=== PATIENT | male | born 1955 | race American Indian/Alaskan Native ===

== ENCOUNTER 2016-06-18 09:52 | Inpatient (IN) | payer SELFPAY ==
[2016-06-18] MEDS ORDERED: NACL 0.9% 1000 ML 1,000 ML IV ONE (10:10)
--- NOTE | 2016-06-18 10:35 | Emergency Department Report ---
Chief Complaint: GI Bleed Stated Complaint: CHEST PAIN/BLOOD IN STOOL Time Seen by Provider: 06/18/16 10:30 - HPI History of Present Illness: 60 Y/O complain of chest palpitation.pt current has a pacemaker in place .pt complain of rectal bleeding .pt state that he current taking xarelto .pt compliain of chest pain and shortness of breath with walking .no prior medication .no prior treatment . - ROS Review of Systems: per HPI - Exam Vital Signs: Vital Signs 06/18/16 10:06 Temperature 98.5 F Pulse Rate 68 Respiratory 22 Rate Blood Pressure 216/108 O2 Sat by Pulse 100 Oximetry Physical Exam: GENERAL: The patient is well-developed and well-nourished. Patient is in NAD. HENT: Normocephalic. Atraumatic. Patient has moist mucous membranes. Throat: No erythema, swelling or exudates. EYES: Extraocular motions are intact, PERRL NECK: Supple. No meningitic signs are noted. There is no adenopathy noted. CHEST/LUNGS: Clear to auscultation bilaterally. No wheezing, rales or rhonchi noted. There is no respiratory distress noted. HEART/CARDIOVASCULAR: regular rate and rhythm. Normal S1 S2. No murmurs, rubs , clicks, or gallops. ABDOMEN: Abdomen is soft, nontender.. Bowel sounds normoactive. There is no abdominal distention. Negative rebound tenderness. : Deferred. SKIN: There is no rash. There is no edema. There is no diaphoresis. NEURO: The patient is A&Ox3. The patient has no focal neurologic deficits. MUSCULOSKELETAL: There is no tenderness or deformity. There is no limitation range of motion. PSYCH: Pt has appropriate mood and affect. MSE screening note: Focused history and physical exam performed. Due to findings the following was ordered: ED Disposition for MSE Condition: Stable Forms: Accompanied Note
[2016-06-18 10:42] LABS: Basophils % (Auto) 0.4 % (0.0-1.8); Eosinophils % (Auto) 1.7 % (0.0-4.3); Hematocrit 43.4 % (35.5-45.6); Mean Corpuscular HGB Conc 32 % (32-34); Mean Corpuscular Hemoglobin 28 pg (28-32); Mean Corpuscular Volume 87 fl (84-94); Platelet Count 171 K/mm3 (140-440); Red Blood Count 5.01 M/mm3 (3.65-5.03); Red Cell Distribution Width 14.7 % (13.2-15.2); White Blood Count 10.6 K/mm3 (4.5-11.0)
[2016-06-18 10:54] LABS: INR 1.09 (0.87-1.13)
[2016-06-18 10:55] LABS: Partial Thromboplastin Time 28.9 Sec. (24.2-36.6)
[2016-06-18 11:00] LABS: Alanine Aminotransferase 11 units/L (7-56); Albumin 3.7 g/dL (3.9-5); Albumin/Globulin Ratio 0.9 %; Alkaline Phosphatase 52 units/L (35-129); Anion Gap 20 mmol/L; BUN/Creatinine Ratio 13.63; Bilirubin,Total 0.5 mg/dL (0.1-1.2); Blood Urea Nitrogen 15 mg/dL (9-20); Calcium 9.1 mg/dL (8.4-10.2); Carbon Dioxide 23 mmol/L (22-30); Chloride 101.8 mmol/L (98-107); Glucose 119 mg/dL (75-100); Lipase 23 units/L (13-60); Potassium 4.3 mmol/L (3.6-5.0); Sodium 140 mmol/L (137-145); Total Protein 7.7 g/dL (6.3-8.2)
[2016-06-18 11:13] LABS: Creatine Kinase 63 units/L (55-170)
[2016-06-18 11:14] LABS: Creatine Kinase MB < 1.0 ng/mL (0.0-4.0)
[2016-06-18] MEDS ORDERED: ULTRAM PO ONE (12:11)
[2016-06-18] MEDS ORDERED: APRESOLINE IV ONE (12:11)
--- NOTE | 2016-06-18 12:24 | Emergency Department Report ---
HPI - General Chief Complaint: GI Bleed Time Seen by Provider: 06/18/16 11:57 - HPI HPI: This is a 60-year-old Afro[place]er male who presents to the emergency department from home with 2 complaints. The more concerning of the 2 complaints is some midsternal and left-sided chest pain that began last night. Patient says that he has a history of atrial fibrillation and felt like for a 3- 4 minute that he was tachycardiac and having palpitation. He is unsure whether or not his difficult later when off or it stopped on its own, but the chest pain began right after this. He denies any shortness of breath, nausea, vomiting or diaphoresis. Patient does have a history of hypertension, A. fib, coronary artery disease with an ME 1.5 years ago, pacemaker and AICD placement. 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 His second complaint is for a bleeding hemorrhoid. He does not have a history of hemorrhoids but admits to taking multiple Dulcolax, straining, and feeling some pressure, pain, and swelling of the rectum. He felt what appears to be a hemorrhoid and was using some hemorrhoid cream without much relief. Today patient has been having some mild bleeding. However he is also on Cirella to secondary to his history of A. fib. ED Past Medical Hx - Past Medical History Previous Medical History?: Yes Hx Hypertension: Yes Additional medical history: irregular HR - Surgical History Past Surgical History?: Yes Additional Surgical History: pacemaker, PTCA - Social History Smoking Status: Current Some Day Smoker Substance Use Type: Alcohol, Prescribed - Medications Home Medications: Home Medications Medication Instructions Recorded Confirmed Last Taken Type Carvedilol [Coreg] 25 mg PO BID 06/18/16 06/18/16 06/17/16 History Furosemide [Lasix] 20 mg PO QDAY 06/18/16 06/18/16 Unknown History Lisinopril [Zestril] 20 mg PO BID 06/18/16 06/18/16 06/17/16 History Mv-Mn/Iron/FA/Herbal Cmplx#190 1 each PO QDAY 06/18/16 06/18/16 06/17/16 History [Vitamin D3 Complete Caplet] Pantoprazole [Protonix] 40 mg PO QDAY 06/18/16 06/18/16 06/17/16 History Rivaroxaban [Xarelto] 20 mg PO QDAY 06/18/16 06/18/16 06/17/16 History Spironolactone [Aldactone] 25 mg PO QDAY 06/18/16 06/18/16 06/17/16 History hydrALAZINE [Apresoline TAB] 10 mg PO QDAY 06/18/16 06/18/16 Unknown History ED Review of Systems ROS: Stated complaint: CHEST PAIN/BLOOD IN STOOL Other details as noted in HPI Comment: All other systems reviewed and negative Constitutional: denies: chills, fever Eyes: denies: eye pain, eye discharge, vision change ENT: denies: ear pain, throat pain Respiratory: denies: cough, shortness of breath, wheezing Cardiovascular: chest pain. denies: palpitations Gastrointestinal: denies: abdominal pain, nausea, diarrhea Genitourinary: denies: urgency, dysuria Musculoskeletal: denies: back pain, joint swelling, arthralgia Skin: denies: rash, lesions Neurological: denies: headache, weakness, paresthesias Physical Exam - Physical Exam Vital Signs: Vital Signs 06/18/16 10:06 Temperature 98.5 F Pulse Rate 68 Respiratory 22 Rate Blood Pressure 216/108 O2 Sat by Pulse 100 Oximetry Physical Exam: GENERAL: The patient is well-developed well-nourished. HEENT: Normocephalic. Atraumatic. Extraocular motions are intact. Patient has moist mucous membranes. Pupils equal reactive to light bilaterally. NECK: Supple. Trachea is midline. CHEST/LUNGS: Clear to auscultation. There is no respiratory distress noted. HEART/CARDIOVASCULAR: Regular. There is no tachycardia. There is no gallop rub or murmur. ABDOMEN: Abdomen is soft, nontender. Patient has normal bowel sounds. There is no abdominal distention. Obese habitus. SKIN: There is no rash. There is no edema. There is no diaphoresis. NEURO: The patient is awake, alert, and oriented. The patient is cooperative. The patient has no focal neurologic deficits. The patient has normal speech. MUSCULOSKELETAL: There is no tenderness or deformity. There is no limitation range of motion. There is no evidence of acute injury. RECTAL: Patient has a moderate sized nonthrombosed external hemorrhoid at about the 3 o'clock position. There is some mild gross blood seen at is bright red. ED Course Vital Signs 06/18/16 10:06 Temperature 98.5 F Pulse Rate 68 Respiratory 22 Rate Blood Pressure 216/108 O2 Sat by Pulse 100 Oximetry ED Medical Decision Making - Lab Data Result diagrams: 06/18/16 10:24 06/18/16 10:24 - EKG Data -: EKG Interpreted by Me EKG shows normal: sinus rhythm, axis (LAD), intervals, QRS complexes (Q waves to the septal leads), ST-T waves (nonspecific ST-T waves) Rate: normal - EKG Data When compared to previous EKG there are: previous EKG unavailable Interpretation: other (left axis deviation, Q waves in the septal leads, nonspecific T waves) - Radiology Data Radiology results: image reviewed interpreted by me: Chest x-ray did not show any acute process. Heart is normal shape and size. No effusions. No pneumothorax. No signs of pneumonia seen. - Medical Decision Making 60-year-old male presents with chest pain and hemorrhoid. Despite the rectal bleeding and the fact that he is on Xarelto his hemoglobin is currently stable and there is only a mild amount of blood seen on rectal examination. Patient had an EKG that shows some Q waves to the septal leads and some T-wave inversions to the lateral leads. Otherwise no obvious ST elevation ME or dysrhythmia. Chest x-ray does not show any acute process. Patient has had multiple negative troponins thus far. However the patient does present with very elevated blood pressure. He was given some eye drowsiness come down to more reasonable level but still is very hypertensive. With his hypertensive urgency, his chest pain, has history of coronary artery disease with ME and pacemaker placement, the patient will be admitted to hospital for further evaluation and treatment and has been accepted for admission by the hospitalist , Dr. Hook. - Differential Diagnosis ME, costochondritis, GERD, hemorrhoids, malignancy Critical Care Time: No Critical care attestation.: If time is entered above; I have spent that time in minutes in the direct care of this critically ill patient, excluding procedure time. ED Disposition Clinical Impression: Hypertensive urgency, External hemorrhoids Chest pain Qualifiers: Chest pain type: unspecified Qualified Code(s): R07.9 - Chest pain, unspecified Disposition: OP ADMITTED IP TO THIS HOSP Is pt being admited?: Yes Condition: Stable Instructions: Chest Pain (ED) Forms: Accompanied Note Time of Disposition: 13:36
--- NOTE | 2016-06-18 12:41 | Admit Criteria Form ---
Admission Criteria Documentation: HYPERTENSION Clinical Indications for Admission to Inpatient Care ( Place "X" for any and all applicable criteria): Admission is indicated for ANY ONE of the following(1)(2)(3)(4): [ ]I. Hypertensive emergency, with evidence of acute and progressing target organ disease as indicated by ANY ONE of the following: [ ]a) Hypertensive encephalopathy (eg, confusion, altered mental status) [ ]b) Cerebral infarction [ ]c) Intracranial hemorrhage [ ]d) Myocardial ischemia or infarction [ ]e) Pulmonary edema [ ]f) Aortic dissection [ ]g) Seizure [ ]h) Acute renal insufficiency [ ]i) Papilledema [ ]j) Microangiopathic hemolytic anemia [ ]II. Adrenergic crisis (eg, severe hypertension due to pheochromocytoma crisis, cocaine or amphetamine intoxication, or clonidine withdrawal) [X]III. Severe hypertension (SBP greater than 180 mmHg or DBP greater than 110 mmHg or greater than the 95th percentile for age, gender, and height in pediatric patients) that cannot be controlled (eg, to SBP less than 160 mmHg and DBP less than 100 mmHg in adults) by treatment with oral medication in emergency department or observation care Extended stay beyond goal length of stay may be needed for(11)(12)(13): [ ]a) Persistent hypertensive encephalopathy [ ]b) Continuation of pulmonary edema [ ]c) Recurring or persistent severe hypertension [ ]d) Target organ damage (eg, angina, stroke, aortic dissection) [ ]e) Associated renal insufficiency The original [employer] content created by [employer] has been revised. The portions of the content which have been revised are identified through the use of italic text or in bold, and [email or web address] has neither reviewed nor approved the modified material. All other unmodified content is copyright [facility]. Please see references footnoted in the original [facility] edition 2016 Admission Criteria Met: Yes
--- NOTE | 2016-06-18 13:07 | XRay Report ---
AP CHEST: HISTORY: chest pain AP view of the chest demonstrates a normal mediastinal and cardiac contour with clear lungs and normal bony and soft tissue structures. A single lead pacemaker device is in position. IMPRESSION: Unremarkable AP chest.
[2016-06-18] MEDS ORDERED: NITROSTAT SL ONE (13:12)
--- NOTE | 2016-06-18 13:30 | History and Physical Report ---
History of Present Illness Date of examination: 06/18/16 Date of admission: 06/18/16 Chief complaint: chest pain for 1 week; bleeding hemorrhoid History of present illness: Mr Anna is a 60 Y/O M who presented to the ER with worsening chest pain for 2 days; pain started about 1 week ago; central; pressing; 6/10; no radiation; also has been out of most of his meds for about 1 week including lasix;' 3 pillow orthopnea; leg swelling and shortness of breath; no fever; also 2 days ago noticed bleeding from what he thinks is a hemorrhoid; was constipated for about 4 days and took dulcalaz; noticed bleeding again this morning; never had a problem with hemorrhoid prior to now; h/o CAD a nd a. fibrillation and s/p angioplasty and is on xareloto and PM insertion; Past History Past Medical History: atrial fib, heart failure, hypertension Past Surgical History: Other (angioplasty; PM insertion) Social history: smoking (occasional), full code. denies: alcohol abuse, prescription drug abuse, IV drug use Family history: diabetes, hypertension, stroke Medications and Allergies Allergies Allergy/AdvReac Type Severity Reaction Status Date / Time morphine Allergy Itching Verified 06/18/16 12:10 Home Medications Medication Instructions Recorded Confirmed Last Taken Type Carvedilol [Coreg] 25 mg PO BID 06/18/16 06/18/16 06/17/16 History Furosemide [Lasix] 20 mg PO QDAY 06/18/16 06/18/16 Unknown History Lisinopril [Zestril] 20 mg PO BID 06/18/16 06/18/16 06/17/16 History Mv-Mn/Iron/FA/Herbal Cmplx#190 1 each PO QDAY 06/18/16 06/18/16 06/17/16 History [Vitamin D3 Complete Caplet] Pantoprazole [Protonix] 40 mg PO QDAY 06/18/16 06/18/16 06/17/16 History Rivaroxaban [Xarelto] 20 mg PO QDAY 06/18/16 06/18/16 06/17/16 History Spironolactone [Aldactone] 25 mg PO QDAY 06/18/16 06/18/16 06/17/16 History hydrALAZINE [Apresoline TAB] 10 mg PO QDAY 06/18/16 06/18/16 Unknown History Active Meds: Active Medications Carvedilol (Coreg) 25 mg PO BID LAST Furosemide (Lasix) 40 mg IV ONCE ONE Stop: 06/18/16 13:20 Sodium Chloride (Nacl 0.9% 1000 Ml) 1,000 mls @ 250 mls/hr IV ONCE ONE Stop: 06/18/16 14:09 Ampicillin Sodium/Sulbactam Sodium (Unasyn/Ns 3 Gm/100 Ml) 100 mls @ 100 mls/ hr IV Q6HR LAST PRN Reason: Protocol Lisinopril (Zestril) 20 mg PO BID LAST Pantoprazole Sodium (Protonix) 40 mg PO QDAY LAST Spironolactone (Aldactone) 25 mg PO QDAY [facility] Review of Systems All systems: negative Constitutional: no weight loss, no weight gain, no fever, no chills, no sweats, no night sweats Ears, nose, mouth and throat: no ear pain, no ear discharge, no tinnitis Cardiovascular: other (as in [facility]) Respiratory: shortness of breath, no cough, no cough with sputum, no excessive sputum, no hemoptysis Gastrointestinal: no abdominal pain, no nausea, no vomiting, no diarrhea, no constipation Genitourinary Male: no hematuria, no flank pain, no urinary frequency Musculoskeletal: no neck stiffness, no neck pain, no shooting arm pain, no arm numbness/tingling, no low back pain Integumentary: no rash, no pruritis, no redness, no sores, no wounds Neurological: no head injury, no transient paralysis, no paralysis, no weakness , no parathesias Psychiatric: no anxiety, no memory loss, no change in sleep habits Endocrine: no cold intolerance, no heat intolerance, no polyphagia Hematologic/Lymphatic: no easy bruising, no easy bleeding Allergic/Immunologic: no urticaria, no allergic rhinitis Exam - Constitutional Vitals: Temp Pulse Resp BP Pulse Ox 98.5 F 70 20 170/88 97 06/18/16 10:06 06/18/16 13:05 06/18/16 13:05 06/18/16 13:05 06/18/16 13:05 General appearance: Present: no acute distress, well-nourished - EENT Eyes: Present: PERRL, EOM intact. Absent: scleral icterus, conjunctival injection ENT: hearing intact, clear oral mucosa, no oropharyngeal erythema, no poor dentition - Neck Neck: Present: supple, normal ROM. Absent: enlarged thyroid, masses or JVD - Respiratory Respiratory effort: normal Respiratory: bilateral: diminished, negative: rales, rhonchi, wheezing - Cardiovascular Rhythm: regular Heart Sounds: Present: S1 & S2 - Extremities Extremities: no ischemia, pulses intact, pulses symmetrical Extremity abnormal: edema (4 plus pitting) Peripheral Pulses: within normal limits - Abdominal General gastrointestinal: Present: soft, non-tender, normal bowel sounds Male genitourinary: Present: deferred - Rectal Rectal Exam: other (area on the LT gluteal area swollen with foul smelling drainage) - Integumentary Integumentary: Present: clear, warm - Musculoskeletal Musculoskeletal: strength equal bilaterally - Psychiatric Psychiatric: appropriate mood/affect, intact judgment & insight, cooperative - Neurologic Neurologic: CNII-XII intact, moves all extremities Results - Labs CBC & Chem 7: 06/18/16 10:24 06/18/16 10:24 Labs: Abnormal lab results 06/18/16 06/18/16 Range/Units 10:24 10:24 Lymph % (Auto) 9.7 L (13.4-35.0) % [place] % (Auto) 10.2 H (0.0-7.3) % Lymph # 1.0 L (1.2-5.4) K/mm3 [place] # 1.1 H (0.0-0.8) K/mm3 Seg Neutrophils % 78.0 H (40.0-70.0) % Seg Neutrophils # 8.3 H (1.8-7.7) K/mm3 Glucose 119 H (75-100) mg/dL Albumin 3.7 L (3.9-5) g/dL - Imaging and Cardiology EKG: image reviewed (sinus ; no acute ST segment changes; rate 65 ) Chest x-ray: report reviewed (unremarkable) Assessment and Plan 1. Acute exacerbation of CHF- type unspecified likely systolic - will admit as an inpatient as more than 2 MN are required for treatment; admit to telemetry; serial CE; IV lasix 40mg IV q12h; consult cardiology; restart home med with cored and ACEI; spironolactone; daily weights; echo; need for compliance stressed; monitor lytes 2. UNcontrolled HTN- restart home meds; prn IV hydralazine; cardiac diet 3. Gluteal abscess- consult sx; IV unasyn; wound C/S; check HbA1C 4. Palpitations -likely A fib- monitor and storage bin tender; TSH; consult cardiology; get records from branch service specialist in [place]; hold xarelto in view of abscess 5. Nicotine abuse-counselled about the need to quit; offered nicotine patch- refused; 10 minutes spent couselling 6. DVT prophylaxis- was on xarelto- hold in the event that he needs I&D of abscess; start heparin tomorrow pending plans for I&D
[2016-06-18] MEDS ORDERED: LASIX IV ONE (13:36)
[2016-06-18] MEDS ORDERED: COREG ONE (14:09)
[2016-06-18] MEDS: ZESTRIL PO SCH (14:27)
[2016-06-18] MEDS: COREG PO SCH ×2 (14:27→22:00)
[2016-06-18] MEDS ORDERED: NITROSTAT SL PRN (14:53)
[2016-06-18] MEDS: ALDACTONE PO SCH (16:15)
[2016-06-18] MEDS: UNASYN/NS 3 GM/100 ML 100 ML IV SCH ×2 (16:25→19:06)
--- NOTE | 2016-06-18 16:41 | Consultation ---
History of Present Illness Consult date: 06/18/16 Reason for consult: other (gluteal abcess (right side)) - History of present illness History of present illness: 60 year old male with multiple medical problems with hx of chest pain, seen in ER and found to have draining right gluteal abcess. Pain is less in right buttock since abcess started to drain. On Eliquiss for a fib. He was eating when I entered the room. Past History Past Medical History: atrial fib, heart failure, hypertension Past Surgical History: Other (angioplasty; PM insertion) Social history: smoking (occasional), full code. denies: alcohol abuse, prescription drug abuse, IV drug use Family history: diabetes, hypertension, stroke Medications and Allergies Allergies Allergy/AdvReac Type Severity Reaction Status Date / Time morphine Allergy Itching Verified 06/18/16 12:10 Home Medications Medication Instructions Recorded Confirmed Last Taken Type Carvedilol [Coreg] 25 mg PO BID 06/18/16 06/18/16 06/17/16 History Furosemide [Lasix] 20 mg PO QDAY 06/18/16 06/18/16 Unknown History Lisinopril [Zestril] 20 mg PO BID 06/18/16 06/18/16 06/17/16 History Mv-Mn/Iron/FA/Herbal Cmplx#190 1 each PO QDAY 06/18/16 06/18/16 06/17/16 History [Vitamin D3 Complete Caplet] Pantoprazole [Protonix] 40 mg PO QDAY 06/18/16 06/18/16 06/17/16 History Rivaroxaban [Xarelto] 20 mg PO QDAY 06/18/16 06/18/16 06/17/16 History Spironolactone [Aldactone] 25 mg PO QDAY 06/18/16 06/18/16 06/17/16 History hydrALAZINE [Apresoline TAB] 10 mg PO QDAY 06/18/16 06/18/16 Unknown History Active Meds: Active Medications Aspirin (Aspirin) 325 mg PO QDAY [facility] Carvedilol (Coreg) 25 mg PO BID [facility] Last Admin: 06/18/16 14:27 Dose: 25 mg Furosemide (Lasix) 40 mg IV BID@0600,1800 [facility] Heparin Sodium (Porcine) (Heparin) 5,000 unit SUB-Q Q8HR [facility] Ampicillin Sodium/Sulbactam Sodium (Unasyn/Ns 3 Gm/100 Ml) 100 mls @ 100 mls/ hr IV Q6HR LAST PRN Reason: Protocol Last Admin: 06/18/16 16:25 Dose: 100 mls/hr Lisinopril (Zestril) 20 mg PO BID [facility] Last Admin: 06/18/16 14:27 Dose: 20 mg Nitroglycerin (Nitrostat) 0.4 mg SL .Q5MIN PRN PRN Reason: Chest Pain Pantoprazole Sodium (Protonix) 40 mg PO QDAY [facility] Spironolactone (Aldactone) 25 mg PO QDAY [facility] Last Admin: 06/18/16 16:15 Dose: 25 mg Tramadol HCl (Ultram) 50 mg PO Q4H PRN PRN Reason: Pain, Moderate (4-6) Review of Systems - Constitutional other (chest pain (better) , buttock pain) Exam Vital Signs Temp Pulse Resp BP Pulse Ox 98.5 F 68 22 216/108 100 06/18/16 10:06 06/18/16 10:06 06/18/16 10:06 06/18/16 10:06 06/18/16 10:06 - General physical appearance Positive: no distress - Eyes Positive: PERRL, normal occular movement - ENT Positive: normal pinna, normal nares, normal mucosa, no hearing loss, no congestion - Neck Positive: no masses, no bruits, trachea midline, no venous distension - Respiratory Positive: normal expansion, normal respiratory effort, clear to auscultation - Cardiovascular Rhythm: irregularly irregular Heart Sounds: Present: S1 & S2. Absent: rub, click - Extremities Extremities: no ischemia Peripheral Pulses: within normal limits - Breasts Breasts: normal - Abdomen Abdomen: Present: soft, bowel sounds normal. Absent: tender, distended Hernia: none - Rectum Rectum: other (draining right buttock abcess) - Musculoskeletal normal gait, normal posture - Psychiatric Psychiatric: appropriate mood/affect, intact judgment & insight Results - Labs 06/18/16 10:24 06/18/16 10:24 Abnormal lab results 06/18/16 Range/Units 13:50 Hemoglobin A1c 7.0 H (4-6) % Diabetes panel 06/18/16 06/18/16 Range/Units 13:50 13:50 Hemoglobin A1c 7.0 H (4-6) % Triglycerides 85 (2-149) mg/dL HDL Cholesterol 51 (40-59) mg/dL Thyroid panel 06/18/16 Range/Units 13:50 TSH 1.920 (0.270-4.200) mlU/mL Pituitary panel 06/18/16 Range/Units 13:50 TSH 1.920 (0.270-4.200) mlU/mL Assessment and Plan right buttock abcess, draining will make NPO p midnight and debride right buttock if OK with cardiology.
[2016-06-18] MEDS: ULTRAM PO PRN (22:22)
[2016-06-19] MEDS: UNASYN/NS 3 GM/100 ML 100 ML IV SCH ×4 (00:24→18:10)
[2016-06-19] MEDS: ULTRAM PO PRN ×3 (04:12→17:30)
[2016-06-19] MEDS: LASIX IV SCH ×2 (05:28→17:25)
[2016-06-19] MEDS: HEPARIN SUB-Q SCH ×3 (05:40→21:34)
[2016-06-19 06:33] LABS: BUN/Creatinine Ratio 18.18; Blood Urea Nitrogen 20 mg/dL (9-20); Calcium 8.7 mg/dL (8.4-10.2); Carbon Dioxide 25 mmol/L (22-30); Chloride 100.7 mmol/L (98-107); Glucose 107 mg/dL (75-100); Potassium 4.9 mmol/L (3.6-5.0); Sodium 138 mmol/L (137-145)
[2016-06-19 06:35] LABS: Anion Gap 17 mmol/L
--- NOTE | 2016-06-19 08:08 | Event Note ---
Date: 06/19/16 in ECHO lab, gm stain noted, will need Cardiology clearance prior to surgery, patient is allready draining and is on appropriate antibiotics.
--- NOTE | 2016-06-19 10:38 | Echocardiography Report ---
Transthoracic Echocardiogram Indication: PRE OP BP: 134/92 HR: 57 Conclusions *The study is technically limited due to patient body habitus. *The left ventricular chamber size is normal. *Mild concentric left ventricular hypertrophy is observed. *Global left ventricular systolic function is moderately decreased. *The estimated ejection fraction is 35-40%. *Abnormal left ventricular diastolic filling is observed, consistent with impaired relaxation. *The left atrium is moderately dilated. Findings Procedure Info: The study quality is fair. The study is technically limited due to poor apical windows. The study is technically limited due to patient body habitus. The study is technically limited due to the patient's smoking history. Left Ventricle: The left ventricular chamber size is normal. Mild concentric left ventricular hypertrophy is observed. Global left ventricular systolic function is moderately decreased. The estimated ejection fraction is 35-40%. Abnormal left ventricular diastolic filling is observed, consistent with impaired relaxation. Left Atrium: The left atrium is moderately dilated. Right Ventricle: The right ventricular cavity size is normal. The right ventricular global systolic function is normal. Right Atrium: The right atrium is mildly dilated. A pacemaker wire is visualized in the right atrium. Aortic Valve: The aortic valve is trileaflet. There is mild thickening of the right coronary cusp. Systolic excursion of the aortic valve is normal. Mitral Valve: The mitral valve leaflets appear normal. There is trace of mitral regurgitation. There is no evidence of mitral stenosis. Tricuspid Valve: The tricuspid valve is not well visualized. There is trace tricuspid regurgitation. No pulmonary hypertension is noted. There is no tricuspid stenosis. Pulmonic Valve: The pulmonic valve is not well visualized. There is no evidence of pulmonic regurgitation. There is no pulmonic stenosis. Pericardium: There is no pericardial effusion. No pleural effusion is present. Pulmonary Artery: The main pulmonary artery is not well visualized. Venous: The inferior vena cava appears normal in size. There is a greater than 50% respiratory change in the inferior vena cava dimension. Measurements Chambers MM Name Value Normal Range LVIDd (MM) 7.36 cm (3.7 - 5.6) LVIDs (MM) 5.47 cm (2 - 2.8) LV FS (Teichholz) (MM) 25.7 % - LV FS (cube) (MM) 25.7 % - EF Teichholz (MM) 49 % - Ao root diameter (MM) 4.4 cm (2 - 3.7) LA dimension (AP) MM 5.8 cm (1.9 - 4) LA:Ao ratio (MM) 1.32 ratio - AV cusp separation (MM) 2.5 cm (1.5 - 2.6) Chambers 2D Name Value Normal Range IVSd (2D) 1.27 cm (0.6 - 1.1) LVPWd 1.6 cm - LVPWd (2D) 1.61 cm (0.6 - 1.1) IVS:LVPW ratio (2D) 0.79 ratio - LVIDd 4.95 cm - LVIDs 3.9 cm - LVIDd (2D) 4.95 cm (3.7 - 5.6) LVIDs (2D) 3.85 cm (2 - 3.8) LV FS (Teichholz) (2D) 22.2 % - LV FS (cube) (2D) 22.2 % - LV EF (2D) 45 % - EF Teichholz (2D) 44.9 % - LA dimension 4.8 cm - Ao root diameter (2D) 3.5 cm (2 - 3.7) LA dimension (AP) 2D 4.8 cm (1.9 - 4) LA:Ao ratio (2D) 1.37 ratio - Volumes/Mass Name Value Normal Range LA ESV SP 4CH (MOD) 58 ml - LV EDV SP 4CH (MOD) 160 ml - LV ESV SP 4CH (MOD) 86 ml - EF SP 4CH (MOD) 46 % - Diastolic/Systolic Function Name Value Normal Range MV E-wave Vmax 0.5 m/sec - MV deceleration time 461 msec - MV A-wave Vmax 0.44 m/sec - MV E:A ratio 1.1 ratio - LV septal e' Vmax 0.04 m/sec - LV lateral e' Vmax 0.07 m/sec - LV E:e' septal ratio 11.4 ratio - LV E:e' lateral ratio 7.5 ratio - Aortic Valve Name Value Normal Range AV Vmax 1.03 m/sec - AV peak gradient 4 mmHg - LVOT diameter 2.3 cm - LVOT Vmax 0.62 m/sec - LVOT peak gradient 2 mmHg - MARY (continuity Vmax) 2.49 cm2 - Tricuspid Valve Name Value Normal Range TR Vmax 2.24 m/sec - TR peak gradient 20 mmHg - Pulmonic Valve/Qp:Qs Name Value Normal Range PV Vmax 0.68 m/sec - PV peak gradient 2 mmHg - PV acceleration time 120 msec -
[2016-06-19] MEDS: ZESTRIL PO SCH ×2 (10:39→21:35)
[2016-06-19] MEDS: COREG PO SCH ×2 (10:40→21:35)
[2016-06-19] MEDS: PROTONIX PO SCH (10:40)
[2016-06-19] MEDS: ALDACTONE PO SCH (10:44)
[2016-06-19] MEDS: ASPIRIN PO SCH (10:45)
[2016-06-19] MEDS ORDERED: PNEUMOVAX 23 IM ONE (12:00)
[2016-06-19] MEDS ORDERED: FLUARIX QUAD 2016-2017(36 MOS+) IM ONE (12:00)
--- NOTE | 2016-06-19 12:29 | Consultation ---
Addendum entered and electronically signed by SARAH SAVAGE MD 13:30: patient seen and examined Stable cardiomyopathy with no signs of heart failure Extensive cardiac work-up in [place] including a stress test and a heart cath showing non-ischemic cardiomyopathy s/p medtronic SC AICD - no recent shocks patient may proceed with abscess surgery from a cardiac standpoint Original Note: History of Present Illness Consult date: 06/19/16 Consult reason: congestive heart failure History of present illness: This is a 60yr old male that recently here from [place] who presented to this hospital with complaints of chest pain and rectal pain. Cardiac consultation requested. He denies shortness of breath, nausea vomiting. Chest xray reports no acute process. His ECG shows a sinus rhythm with nonspecific twave abnormalities. Patient reports a known history of CHF. About 3 years ago patient states he had a cardiac cath showed no significant coronary disease. Ejection fraction 20%. He has a Medtronic AICD insitu. Most recent workup was a stress thallium the patient reports as normal. He also reports a history of pulmonary embolus and DVT for which he is taking Xarelto for anticoagulation. Past History Past Medical History: atrial fib, heart failure, hypertension Past Surgical History: Other (angioplasty; PM insertion) Social history: smoking (occasional), full code. denies: alcohol abuse, prescription drug abuse, IV drug use Family history: diabetes, hypertension, stroke Medications and Allergies Allergies Allergy/AdvReac Type Severity Reaction Status Date / Time morphine Allergy Itching Verified 06/18/16 12:10 Home Medications Medication Instructions Recorded Confirmed Last Taken Type Carvedilol [Coreg] 25 mg PO BID 06/18/16 06/18/16 06/17/16 History Furosemide [Lasix] 20 mg PO QDAY 06/18/16 06/18/16 Unknown History Lisinopril [Zestril] 20 mg PO BID 06/18/16 06/18/16 06/17/16 History Mv-Mn/Iron/FA/Herbal Cmplx#190 1 each PO QDAY 06/18/16 06/18/16 06/17/16 History [Vitamin D3 Complete Caplet] Pantoprazole [Protonix] 40 mg PO QDAY 06/18/16 06/18/16 06/17/16 History Rivaroxaban [Xarelto] 20 mg PO QDAY 06/18/16 06/18/16 06/17/16 History Spironolactone [Aldactone] 25 mg PO QDAY 06/18/16 06/18/16 06/17/16 History hydrALAZINE [Apresoline TAB] 10 mg PO QDAY 06/18/16 06/18/16 Unknown History Active Meds: Active Medications Aspirin (Aspirin) 325 mg PO QDAY [facility] Last Admin: 06/19/16 10:45 Dose: Not Given Carvedilol (Coreg) 25 mg PO BID [facility] Last Admin: 06/19/16 10:40 Dose: 25 mg Furosemide (Lasix) 40 mg IV BID@0600,1800 [facility] Last Admin: 06/19/16 05:28 Dose: 40 mg Heparin Sodium (Porcine) (Heparin) 5,000 unit SUB-Q Q8HR [facility] Last Admin: 06/19/16 05:40 Dose: Not Given Ampicillin Sodium/Sulbactam Sodium (Unasyn/Ns 3 Gm/100 Ml) 100 mls @ 100 mls/ hr IV Q6HR [facility] PRN Reason: Protocol Last Admin: 06/19/16 05:29 Dose: 100 mls/hr Lisinopril (Zestril) 20 mg PO BID [facility] Last Admin: 06/19/16 10:39 Dose: 20 mg Nitroglycerin (Nitrostat) 0.4 mg SL .Q5MIN PRN PRN Reason: Chest Pain Pantoprazole Sodium (Protonix) 40 mg PO QDAY [facility] Last Admin: 06/19/16 10:40 Dose: 40 mg Spironolactone (Aldactone) 25 mg PO QDAY [facility] Last Admin: 06/19/16 10:44 Dose: 25 mg Tramadol HCl (Ultram) 50 mg PO Q4H PRN PRN Reason: Pain, Moderate (4-6) Last Admin: 06/19/16 10:41 Dose: 50 mg Physical Examination Vital Signs Temp Pulse Resp BP Pulse Ox 98.5 F 68 22 216/108 100 06/18/16 10:06 06/18/16 10:06 06/18/16 10:06 06/18/16 10:06 06/18/16 10:06 General appearance: no acute distress HEENT: Positive: PERRL Neck: Positive: trachea midline Cardiac: Positive: Reg Rate and Rhythm Lungs: Positive: Decreased Breath Sounds Neuro: Positive: Grossly Intact Extremities: Absent: edema Results 06/18/16 10:24 06/19/16 05:54 Lipids 06/18/16 Range/Units 13:50 Triglycerides 85 (2-149) mg/dL Cholesterol 177 (50-199) mg/dL HDL Cholesterol 51 (40-59) mg/dL Cholesterol/HDL Ratio 3.47 % Comprehensive Metabolic Panel 06/19/16 Range/Units 05:54 Sodium 138 (137-145) mmol/L Potassium 4.9 (3.6-5.0) mmol/L Chloride 100.7 (98-107) mmol/L Carbon Dioxide 25 (22-30) mmol/L BUN 20 (9-20) mg/dL Creatinine 1.1 (0.8-1.5) mg/dL Glucose 107 H (75-100) mg/dL Calcium 8.7 (8.4-10.2) mg/dL EKG interpretations - Telemetry EKG Rhythm: Sinus Rhythm Assessment and Plan Chest pain, atypical Gluteal abcess Hx of Nonischemic cardiomyopathy EF 35-40% on echo this admission no significant CAD by [facility] in [place] 3 yrs ago per pt Presence of Medtronic AICD Hypertension Tobacco abuse
--- NOTE | 2016-06-19 16:16 | Anesthesia Consultation ---
Anesthesia Consult and Med Hx Date of service: 06/20/16 - Airway Anesthetic Teeth Evaluation: Good ROM Head & Neck: Adequate Mallampati Class: Class III Intubation Access Assessment: Probably Good - Pre-Operative Health Status ASA Pre-Surgery Classification: ASA3 Proposed Anesthetic Plan: General - Pulmonary Hx Smoking: Yes Hx Sleep Apnea: Yes - Cardiovascular System Hx Hypertension: Yes Hx Heart Attack/AMI: Yes (12/31/2014) Hx Pacemaker: Yes - Other Systems Hx Cancer: No - Additional Comments Anesthesia Medical History Comments: Patient denies previous anesthesia complications, but has accuracy issues with regard to describing his medical history.
--- NOTE | 2016-06-19 16:46 | Progress Note ---
Assessment and Plan Assessment and plan: 1. 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 Chest pain ACS excluded Possible GERD, started on PPI 3. A. fib Rate controlled on Coreg and anticoagulated with Xarelto which is on hold for pending surgical procedure 4. Hypertension BP now well controlled on Coreg, lisinopril, spironolactone and Lasix 5. Diabetes Hemoglobin A1c 7 Accu-Cheks and SSI 6. Right gluteal abscess Spontaneously draining Wound culture positive for GNR and GPC Started on antibiotics Surgery consulted and plans I&D tomorrow 7. Nicotine abuse Refused a nicotine patch Counseled regarding importance of quitting 8. DVT prophylaxis Heparin subcutaneous until Xarelto can be restarted History Interval history: c/o mild buttock pain Hospitalist Physical - Constitutional Vitals: Temp Pulse Resp BP Pulse Ox 98.2 F 55 L 20 106/55 97 06/19/16 15:24 06/19/16 15:24 06/19/16 15:24 06/19/16 15:24 06/19/16 15:24 General appearance: Present: no acute distress, obese - EENT Eyes: Present: PERRL, EOM intact. Absent: scleral icterus, conjunctival injection - Neck Neck: Present: supple, normal ROM. Absent: masses or JVD - Respiratory Respiratory effort: normal Respiratory: bilateral: CTA, negative: rales, rhonchi, wheezing - Cardiovascular Rhythm: irregularly irregular Heart Sounds: Present: S1 & S2. Absent: systolic murmur - Extremities Extremities: no ischemia - Abdominal General gastrointestinal: soft, non-tender, non-distended, normal bowel sounds - Psychiatric Psychiatric: cooperative - Neurologic Neurologic: CNII-XII intact, no focal deficits Results - Labs CBC & Chem 7: 06/18/16 10:24 06/19/16 05:54 Labs: Laboratory Last Values WBC 10.6 K/mm3 (4.5-11.0) 06/18/16 10:24 RBC 5.01 M/mm3 (3.65-5.03) 06/18/16 10:24 Hgb 14.0 gm/dl (11.8-15.2) 06/18/16 10:24 Hct 43.4 % (35.5-45.6) 06/18/16 10:24 MCV 87 fl (84-94) 06/18/16 10:24 MCH 28 pg (28-32) 06/18/16 10:24 MCHC 32 % (32-34) 06/18/16 10:24 RDW 14.7 % (13.2-15.2) 06/18/16 10:24 Plt Count 171 K/mm3 (140-440) 06/18/16 10:24 Lymph % (Auto) 9.7 % (13.4-35.0) L 06/18/16 10:24 [place] % (Auto) 10.2 % (0.0-7.3) H 06/18/16 10:24 Eos % (Auto) 1.7 % (0.0-4.3) 06/18/16 10:24 Baso % (Auto) 0.4 % (0.0-1.8) 06/18/16 10:24 Lymph # 1.0 K/mm3 (1.2-5.4) L 06/18/16 10:24 [place] # 1.1 K/mm3 (0.0-0.8) H 06/18/16 10:24 Eos # 0.2 K/mm3 (0.0-0.4) 06/18/16 10:24 Baso # 0.0 K/mm3 (0.0-0.1) 06/18/16 10:24 Seg Neutrophils % 78.0 % (40.0-70.0) H 06/18/16 10:24 Seg Neutrophils # 8.3 K/mm3 (1.8-7.7) H 06/18/16 10:24 PT 14.0 Sec. (12.2-14.9) 06/18/16 10:24 INR 1.09 (0.87-1.13) 06/18/16 10:24 APTT 28.9 Sec. (24.2-36.6) 06/18/16 10:24 Sodium 138 mmol/L (137-145) 06/19/16 05:54 Potassium 4.9 mmol/L (3.6-5.0) 06/19/16 05:54 Chloride 100.7 mmol/L (98-107) 06/19/16 05:54 Carbon Dioxide 25 mmol/L (22-30) 06/19/16 05:54 Anion Gap 17 mmol/L 06/19/16 05:54 BUN 20 mg/dL (9-20) 06/19/16 05:54 Creatinine 1.1 mg/dL (0.8-1.5) 06/19/16 05:54 Estimated GFR > 60 ml/min 06/19/16 05:54 BUN/Creatinine Ratio 18.18 % 06/19/16 05:54 Glucose 107 mg/dL (75-100) H 06/19/16 05:54 Hemoglobin A1c 7.0 % (4-6) H 06/18/16 13:50 Calcium 8.7 mg/dL (8.4-10.2) 06/19/16 05:54 Total Bilirubin 0.5 mg/dL (0.1-1.2) 06/18/16 10:24 AST 12 units/L (5-40) 06/18/16 10:24 ALT 11 units/L (7-56) 06/18/16 10:24 Alkaline Phosphatase 52 units/L (35-129) 06/18/16 10:24 Total Creatine Kinase 63 units/L (55-170) 06/18/16 10:24 CK-MB (CK-2) < 1.0 ng/mL (0.0-4.0) 06/18/16 10:24 CK-MB (CK-2) Rel Index 1.5 (0-4) 06/18/16 10:24 Troponin T < 0.010 ng/mL (0.00-0.029) 06/18/16 22:40 Total Protein 7.7 g/dL (6.3-8.2) 06/18/16 10:24 Albumin 3.7 g/dL (3.9-5) L 06/18/16 10:24 Albumin/Globulin Ratio 0.9 % 06/18/16 10:24 Triglycerides 85 mg/dL (2-149) 06/18/16 13:50 Cholesterol 177 mg/dL (50-199) 06/18/16 13:50 LDL Cholesterol Direct 109 mg/dL (50-130) 06/18/16 13:50 HDL Cholesterol 51 mg/dL (40-59) 06/18/16 13:50 Cholesterol/HDL Ratio 3.47 % 06/18/16 13:50 Lipase 23 units/L (13-60) 06/18/16 10:24 TSH 1.920 mlU/mL (0.270-4.200) 06/18/16 13:50 Blood Type O POSITIVE 06/18/16 10:23 Antibody Screen Negative 06/18/16 10:23 - Imaging and Cardiology Chest x-ray: image reviewed (no acute findings) Imaging and Cardiology: Echocardiogram - EF 35-40%, abnormal diastolic filling
[2016-06-20] MEDS ORDERED: PEPCID IV NR ×2 (00:01→06:00)
[2016-06-20] MEDS ORDERED: VERSED IV NR ×2 (00:01→06:00)
[2016-06-20] MEDS ORDERED: NACL 0.9% 1000 ML 1,000 ML IV SCH ×2 (00:01→06:00)
[2016-06-20] MEDS: UNASYN/NS 3 GM/100 ML 100 ML IV SCH ×5 (00:33→22:17)
[2016-06-20] MEDS: ULTRAM PO PRN ×2 (01:44→08:03)
[2016-06-20] MEDS: HEPARIN SUB-Q SCH (05:10)
[2016-06-20] MEDS: ZESTRIL PO SCH ×2 (10:36→22:00)
[2016-06-20] MEDS: PROTONIX PO SCH (10:36)
[2016-06-20] MEDS: ALDACTONE PO SCH (10:36)
[2016-06-20] MEDS: COREG PO SCH ×2 (10:36→22:17)
--- NOTE | 2016-06-20 12:07 | Anesthesia Day of Surgery ---
Anesthesia Day of Surgery - Day of Surgery Patient Examined: Yes Patient H&P Reviewed: Yes Patient is NPO: Yes Beta Blockers: Yes (06/20/16 AM)
[2016-06-20] MEDS ORDERED: DILAUDID ONE (12:10)
[2016-06-20] MEDS ORDERED: DIPRIVAN 10 MG/ML IV ONE ×2 (12:10)
[2016-06-20] MEDS ORDERED: ePHEDrine SULFATE ONE (12:25)
[2016-06-20] MEDS ORDERED: NACL 0.9% IR ONE (12:44)
[2016-06-20] MEDS ORDERED: HYDROGEN PEROXIDE IRRIGATION ONE (12:46)
--- NOTE | 2016-06-20 12:50 | Post Operative Note ---
Pre-op diagnosis: buttock abcess Post-op diagnosis: other (Reyna anal abcess at 7 oclock 1cm from anal verge) Procedure: I and D reyna anal abcess, no evidence of fistula Anesthesia: ROBIN Surgeon: BARBARA DAVIS Estimated blood loss: minimal Pathology: list (aerobic and anaerobic bacterial cultures) Condition: stable Disposition: floor
[2016-06-20] MEDS: DILAUDID IV PRN ×4 (13:00→15:40)
[2016-06-20] MEDS ORDERED: ZOFRAN ONE (13:06)
[2016-06-20] MEDS ORDERED: NEO SYNEPHRINE ONE (13:06)
[2016-06-20] MEDS ORDERED: XYLOCAINE MPF 2% ONE (13:06)
[2016-06-20] MEDS ORDERED: NACL 0.9% 100 ML ONE (13:06)
[2016-06-20] MEDS ORDERED: LOPRESSOR IV ONE ×2 (13:23→13:28)
--- NOTE | 2016-06-20 13:29 | Operative Report ---
PREOPERATIVE DIAGNOSIS: Right buttock abscess. POSTOPERATIVE DIAGNOSIS: Actually, a perianal abscess at the 7 o'clock position 1 cm from the anal verge. PROCEDURE: Incision and drainage of perianal abscess. There was no evidence of fistula as demonstrated by infusing dilute hydrogen peroxide into the abscess cavity and after a careful rectal exam, I could see no evidence of fistula. ANESTHESIA: The procedure was done under general. SURGEON: Jamir Payton MD BLOOD LOSS: Minimal. SPECIMEN: Aerobic and anaerobic bacterial cultures were sent. CONDITION: Stable. DESCRIPTION OF PROCEDURE: After informed consent, the patient was induced under general anesthesia. He had compression stockings in place. He was already on IV antibiotics. He was positioned in stirrups. He was then sterilely prepped and draped. I performed a careful anal and rectal examination with my finger, which was adequately lubricated. He had a draining abscess cavity, a perianal fistula about 1 cm from anal verge at 7 o'clock position. I carefully palpated the area and then I used an Asepto syringe and instilled hydrogen peroxide and carefully examined the anus. I could see no extrusion or evidence of a fistula. Then, I opened up the incision with 11-scalpel blade. I used the curved Puja and then passed it into the abscess cavity. It was pretty well drained. I washed out with dilute hydrogen peroxide and normal saline until clear and then packed it with 1 inch iodine-impregnated gauze. A sterile dressing was applied. Just prior to this, washing it out, I obtained cultures for aerobic and anaerobic bacterial cultures. I did not see any evidence of extension into a perirectal abscess the best as I could tell nor there was any evidence of fistula. JOB# [id number] JEREMIAH/SALO
--- NOTE | 2016-06-20 14:11 | Post Anesthesia Evaluation ---
- Post Anesthesia Evaluation Patient Participated: Yes Airway Patent: Yes Stable Respiratory Function: Yes Temp > 96.8F: Yes Pain Manageable: Yes Adequeate Hydration: Yes Anesthesia Complications: No Block Receding Appropriately: Not Applicable (Pulse rate highly variable in PACU. from 60's- 130's. No change from telemetry values.)
--- NOTE | 2016-06-20 14:34 | Progress Note ---
Addendum entered and electronically signed by ELISABETH HANCOCK MD 06/20/16 15:04 : Medical therapy for nonischemic cardiomyopathy and chronic systolic heart failure. Original Note: Assessment and Plan Chest pain, atypical Gluteal abscess Hx of Nonischemic cardiomyopathy EF 35-40% on echo this admission no significant CAD by [facility] in [place] 3 yrs ago per pt Presence of Medtronic AICD Hypertension Tobacco abuse Stable cardiomyopathy with no signs of heart failure. May proceed with abscess surgery from a cardiac standpoint. Subjective Date of service: 06/20/16 Interval history: Patient denies shortness of breath and chest pain. Awaits abscess surgical procedure. Objective Vital Signs Temp Pulse Pulse Pulse Resp BP BP 06/20/16 13:25 59 L 12 163/88 06/20/16 13:15 59 L 14 164/94 06/20/16 13:05 127 H 14 139/79 06/20/16 13:00 62 14 164/95 06/20/16 12:55 133 H 16 164/95 06/20/16 11:45 97.9 F 61 16 156/96 06/20/16 11:25 97.9 F 61 16 156/96 06/20/16 08:51 97.9 F 57 L 20 144/79 06/20/16 08:50 06/20/16 07:00 61 06/20/16 04:00 97.9 F 61 18 122/70 06/20/16 01:44 20 06/20/16 00:48 98.2 F 61 18 119/59 06/19/16 20:40 52 L 06/19/16 20:00 98.0 F 53 L 18 112/61 06/19/16 15:24 98.2 F 55 L 20 106/55 06/19/16 15:07 50 L Pulse Ox 06/20/16 13:25 97 06/20/16 13:15 100 06/20/16 13:05 100 06/20/16 13:00 100 06/20/16 12:55 100 06/20/16 11:45 96 06/20/16 11:25 96 06/20/16 08:51 100 06/20/16 08:50 99 06/20/16 07:00 06/20/16 04:00 97 06/20/16 01:44 06/20/16 00:48 98 06/19/16 20:40 06/19/16 20:00 97 06/19/16 15:24 97 06/19/16 15:07 - Physical Examination General: No Apparent Distress HEENT: Positive: PERRL Neck: Positive: trachea midline Cardiac: Positive: Reg Rate and Rhythm Lungs: Positive: Decreased Breath Sounds Neuro: Positive: Grossly Intact Extremities: Absent: edema - Imaging and Cardiology EKG: image reviewed (sinus ; no acute ST segment changes; rate 65 )
[2016-06-20] MEDS: PERCOCET 5/325 PO PRN ×2 (17:14→22:18)
[2016-06-20] MEDS: ASPIRIN PO SCH (17:14)
[2016-06-20] MEDS: LASIX IV SCH (18:32)
--- NOTE | 2016-06-20 18:51 | Progress Note ---
Assessment and Plan Assessment and plan: 1. 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 Chest pain ACS excluded Possible GERD, started on PPI 3. A. fib Rate controlled on Coreg and anticoagulated with Xarelto which is on hold for due to surgical procedure 4. Hypertension BP now controlled on Coreg, lisinopril, spironolactone and Lasix 5. Diabetes Hemoglobin A1c 7 Accu-Cheks and SSI 6. Right gluteal abscess Spontaneously draining Wound culture positive for GNR and GPC (grew E.Coli) Started on antibiotics Surgery consulted and underwent I&D today Continue antibiotic 7. Nicotine abuse Refused a nicotine patch Counseled regarding importance of quitting 8. DVT prophylaxis Heparin subcutaneous until Xarelto can be restarted History Interval history: s/p I&D today, doing well Hospitalist Physical - Constitutional Vitals: Temp Pulse Resp BP Pulse Ox 97.5 F L 60 20 160/78 99 06/20/16 16:30 06/20/16 16:30 06/20/16 16:30 06/20/16 16:30 06/20/16 16:30 General appearance: Present: no acute distress, obese - EENT Eyes: Present: PERRL, EOM intact. Absent: scleral icterus, conjunctival injection - Neck Neck: Present: supple, normal ROM. Absent: masses or JVD - Respiratory Respiratory effort: normal Respiratory: bilateral: CTA, negative: rhonchi, wheezing - Cardiovascular Rhythm: regular Heart Sounds: Present: S1 & S2. Absent: systolic murmur - Extremities Extremities: no ischemia - Abdominal General gastrointestinal: soft, non-tender, non-distended, normal bowel sounds - Psychiatric Psychiatric: cooperative - Neurologic Neurologic: CNII-XII intact, no focal deficits Results - Labs CBC & Chem 7: 06/18/16 10:24 06/19/16 05:54 Labs: Laboratory Last Values WBC 10.6 K/mm3 (4.5-11.0) 06/18/16 10:24 RBC 5.01 M/mm3 (3.65-5.03) 06/18/16 10:24 Hgb 14.0 gm/dl (11.8-15.2) 06/18/16 10:24 Hct 43.4 % (35.5-45.6) 06/18/16 10:24 MCV 87 fl (84-94) 06/18/16 10:24 MCH 28 pg (28-32) 06/18/16 10:24 MCHC 32 % (32-34) 06/18/16 10:24 RDW 14.7 % (13.2-15.2) 06/18/16 10:24 Plt Count 171 K/mm3 (140-440) 06/18/16 10:24 Lymph % (Auto) 9.7 % (13.4-35.0) L 06/18/16 10:24 [place] % (Auto) 10.2 % (0.0-7.3) H 06/18/16 10:24 Eos % (Auto) 1.7 % (0.0-4.3) 06/18/16 10:24 Baso % (Auto) 0.4 % (0.0-1.8) 06/18/16 10:24 Lymph # 1.0 K/mm3 (1.2-5.4) L 06/18/16 10:24 [place] # 1.1 K/mm3 (0.0-0.8) H 06/18/16 10:24 Eos # 0.2 K/mm3 (0.0-0.4) 06/18/16 10:24 Baso # 0.0 K/mm3 (0.0-0.1) 06/18/16 10:24 Seg Neutrophils % 78.0 % (40.0-70.0) H 06/18/16 10:24 Seg Neutrophils # 8.3 K/mm3 (1.8-7.7) H 06/18/16 10:24 PT 14.0 Sec. (12.2-14.9) 06/18/16 10:24 INR 1.09 (0.87-1.13) 06/18/16 10:24 APTT 28.9 Sec. (24.2-36.6) 06/18/16 10:24 Sodium 138 mmol/L (137-145) 06/19/16 05:54 Potassium 4.9 mmol/L (3.6-5.0) 06/19/16 05:54 Chloride 100.7 mmol/L (98-107) 06/19/16 05:54 Carbon Dioxide 25 mmol/L (22-30) 06/19/16 05:54 Anion Gap 17 mmol/L 06/19/16 05:54 BUN 20 mg/dL (9-20) 06/19/16 05:54 Creatinine 1.1 mg/dL (0.8-1.5) 06/19/16 05:54 Estimated GFR > 60 ml/min 06/19/16 05:54 BUN/Creatinine Ratio 18.18 % 06/19/16 05:54 Glucose 107 mg/dL (75-100) H 06/19/16 05:54 Hemoglobin A1c 7.0 % (4-6) H 06/18/16 13:50 Calcium 8.7 mg/dL (8.4-10.2) 06/19/16 05:54 Total Bilirubin 0.5 mg/dL (0.1-1.2) 06/18/16 10:24 AST 12 units/L (5-40) 06/18/16 10:24 ALT 11 units/L (7-56) 06/18/16 10:24 Alkaline Phosphatase 52 units/L (35-129) 06/18/16 10:24 Total Creatine Kinase 63 units/L (55-170) 06/18/16 10:24 CK-MB (CK-2) < 1.0 ng/mL (0.0-4.0) 06/18/16 10:24 CK-MB (CK-2) Rel Index 1.5 (0-4) 06/18/16 10:24 Troponin T < 0.010 ng/mL (0.00-0.029) 06/18/16 22:40 Total Protein 7.7 g/dL (6.3-8.2) 06/18/16 10:24 Albumin 3.7 g/dL (3.9-5) L 06/18/16 10:24 Albumin/Globulin Ratio 0.9 % 06/18/16 10:24 Triglycerides 85 mg/dL (2-149) 06/18/16 13:50 Cholesterol 177 mg/dL (50-199) 06/18/16 13:50 LDL Cholesterol Direct 109 mg/dL (50-130) 06/18/16 13:50 HDL Cholesterol 51 mg/dL (40-59) 06/18/16 13:50 Cholesterol/HDL Ratio 3.47 % 06/18/16 13:50 Lipase 23 units/L (13-60) 06/18/16 10:24 TSH 1.920 mlU/mL (0.270-4.200) 06/18/16 13:50 Blood Type O POSITIVE 06/18/16 10:23 Antibody Screen Negative 06/18/16 10:23
[2016-06-21] MEDS: UNASYN/NS 3 GM/100 ML 100 ML IV SCH ×4 (04:52→21:11)
[2016-06-21] MEDS: LASIX IV SCH ×3 (05:33→17:42)
--- NOTE | 2016-06-21 07:28 | Event Note ---
Date: 06/21/16 POD 1 s/p I and D perianal abcess, doing well, packing removed, patient can go home from general surgery standpoint, oral antibiotics x 7days, sitz baths bid with epsom salts, I can follow up as outpatient next week. Pt instructed on wound care, final decision for discharge given all medical issues per Hospitalist.
[2016-06-21 07:47] LABS: Basophils % (Auto) 0.6 % (0.0-1.8); Eosinophils % (Auto) 4.6 % (0.0-4.3); Hematocrit 42.4 % (35.5-45.6); Hemoglobin 13.7 gm/dl (11.8-15.2); Mean Corpuscular HGB Conc 32 % (32-34); Mean Corpuscular Hemoglobin 29 pg (28-32); Mean Corpuscular Volume 89 fl (84-94); Platelet Count 197 K/mm3 (140-440); Red Cell Distribution Width 14.5 % (13.2-15.2); White Blood Count 6.9 K/mm3 (4.5-11.0)
[2016-06-21] MEDS: PERCOCET 5/325 PO PRN (08:12)
[2016-06-21] MEDS: HEPARIN SUB-Q SCH (09:39)
[2016-06-21] MEDS: ASPIRIN PO SCH (09:41)
[2016-06-21] MEDS: ZESTRIL PO SCH ×2 (09:41→21:09)
[2016-06-21] MEDS: COREG PO SCH ×2 (09:42→21:09)
[2016-06-21] MEDS: ALDACTONE PO SCH (09:42)
[2016-06-21] MEDS: PROTONIX PO SCH (09:42)
--- NOTE | 2016-06-21 12:28 | Progress Note ---
Assessment and Plan Chest pain, atypical Gluteal abscess s/p I & D Hx of Nonischemic cardiomyopathy EF 35-40% on echo this admission no significant CAD by [facility] in [place] 3 yrs ago per pt Presence of [employer] AICD Hypertension Tobacco abuse Recommend: Continue medical therapy for nonischemic cardiomyopathy. Subjective Date of service: 06/21/16 Interval history: Patient reports shortness of breath on exertion. Objective Vital Signs Temp Pulse Pulse Pulse Resp BP BP 06/21/16 09:42 59 L 144/91 06/21/16 09:41 59 L 144/91 06/21/16 09:15 06/21/16 08:00 98.3 F 59 L 20 144/91 06/21/16 05:23 98.7 F 49 L 20 144/68 06/21/16 00:45 97.7 F 55 L 18 146/77 06/20/16 22:17 58 L 131/64 06/20/16 22:15 20 06/20/16 21:46 06/20/16 20:13 97.6 F 51 L 20 151/74 06/20/16 16:30 97.5 F L 60 20 160/78 06/20/16 13:25 59 L 12 163/88 06/20/16 13:20 57 L 153/89 06/20/16 13:15 59 L 14 164/94 06/20/16 13:05 127 H 14 139/79 06/20/16 13:00 62 14 164/95 06/20/16 12:55 133 H 16 164/95 Pulse Ox 06/21/16 09:42 06/21/16 09:41 06/21/16 09:15 96 06/21/16 08:00 95 06/21/16 05:23 98 06/21/16 00:45 100 06/20/16 22:17 06/20/16 22:15 06/20/16 21:46 100 06/20/16 20:13 100 06/20/16 16:30 99 06/20/16 13:25 97 06/20/16 13:20 06/20/16 13:15 100 06/20/16 13:05 100 06/20/16 13:00 100 06/20/16 12:55 100 - Physical Examination General: No Apparent Distress HEENT: Positive: PERRL Neck: Positive: trachea midline Cardiac: Positive: Reg Rate and Rhythm Lungs: Positive: Decreased Breath Sounds Neuro: Positive: Grossly Intact Extremities: Absent: edema - Labs and Meds CBC 06/21/16 Range/Units 07:22 WBC 6.9 (4.5-11.0) K/mm3 RBC 4.80 (3.65-5.03) M/mm3 Hgb 13.7 (11.8-15.2) gm/dl Hct 42.4 (35.5-45.6) % Plt Count 197 (140-440) K/mm3 Lymph # 1.2 (1.2-5.4) K/mm3 [place] # 0.9 H (0.0-0.8) K/mm3 Eos # 0.3 (0.0-0.4) K/mm3 Baso # 0.0 (0.0-0.1) K/mm3 - Imaging and Cardiology EKG: image reviewed (sinus ; no acute ST segment changes; rate 65 )
--- NOTE | 2016-06-21 20:47 | Progress Note ---
Assessment and Plan Assessment and plan: 1. Acute systolic CHF exacerbation After running out of his medications ECHO showing EF 35-40%, abnormal diastolic filling Cardiology consulted and records from his [facility] cutter in [place] obtained - had recent negative stress test and cardiac cath Per cardiology stable nonischemic cardiomyopathy; status post pacemaker placement Continue beta amandeep, KIYA inhibitor, and diuresis with Lasix and spironolactone 2. Chest pain ACS excluded Possible GERD, started on PPI 3. A. fib Rate controlled on Coreg and anticoagulated with Xarelto which is on hold for due to surgical procedure 4. Hypertension BP now controlled on Coreg, lisinopril, spironolactone and Lasix 5. Diabetes Hemoglobin A1c 7 Accu-Cheks and SSI 6. Right gluteal abscess Spontaneously draining Wound culture positive for GNR and GPC (grew E.Coli) Surgery consulted and underwent I&D 06/20 Continue antibiotic (7 day course after discharge, then f/u with Surgery) 7. Nicotine abuse Refused a nicotine patch Counseled regarding importance of quitting 8. DVT prophylaxis Heparin subcutaneous until Xarelto can be restarted History Interval history: s/p I&D yesterday, doing well, pain controlled Hospitalist Physical - Constitutional Vitals: Temp Pulse Resp BP Pulse Ox 98.1 F 62 20 129/62 93 06/21/16 19:39 06/21/16 19:39 06/21/16 19:39 06/21/16 19:39 06/21/16 19:39 General appearance: Present: no acute distress, obese - EENT Eyes: Present: PERRL, EOM intact. Absent: scleral icterus, conjunctival injection - Neck Neck: Present: supple, normal ROM. Absent: masses or JVD - Respiratory Respiratory effort: normal Respiratory: bilateral: CTA, negative: rhonchi, wheezing - Cardiovascular Rhythm: irregularly irregular Heart Sounds: Present: S1 & S2. Absent: systolic murmur - Extremities Extremities: no ischemia - Abdominal General gastrointestinal: soft, non-tender, non-distended, normal bowel sounds - Psychiatric Psychiatric: cooperative - Neurologic Neurologic: CNII-XII intact, no focal deficits - Additional findings Additional findings: buttock wound with dressing in place Results - Labs CBC & Chem 7: 06/21/16 07:22 06/19/16 05:54 Labs: Laboratory Last Values WBC 6.9 K/mm3 (4.5-11.0) 06/21/16 07:22 RBC 4.80 M/mm3 (3.65-5.03) 06/21/16 07:22 Hgb 13.7 gm/dl (11.8-15.2) 06/21/16 07:22 Hct 42.4 % (35.5-45.6) 06/21/16 07:22 MCV 89 fl (84-94) 06/21/16 07:22 MCH 29 pg (28-32) 06/21/16 07:22 MCHC 32 % (32-34) 06/21/16 07:22 RDW 14.5 % (13.2-15.2) 06/21/16 07:22 Plt Count 197 K/mm3 (140-440) 06/21/16 07:22 Lymph % (Auto) 16.8 % (13.4-35.0) 06/21/16 07:22 [place] % (Auto) 13.7 % (0.0-7.3) H 06/21/16 07:22 Eos % (Auto) 4.6 % (0.0-4.3) H 06/21/16 07:22 Baso % (Auto) 0.6 % (0.0-1.8) 06/21/16 07:22 Lymph # 1.2 K/mm3 (1.2-5.4) 06/21/16 07:22 [place] # 0.9 K/mm3 (0.0-0.8) H 06/21/16 07:22 Eos # 0.3 K/mm3 (0.0-0.4) 06/21/16 07:22 Baso # 0.0 K/mm3 (0.0-0.1) 06/21/16 07:22 Seg Neutrophils % 64.3 % (40.0-70.0) 06/21/16 07: Seg Neutrophils # 4.4 K/mm3 (1.8-7.7) 06/21/16 07:22 PT 14.0 Sec. (12.2-14.9) 06/18/16 10:24 INR 1.09 (0.87-1.13) 06/18/16 10:24 APTT 28.9 Sec. (24.2-36.6) 06/18/16 10:24 Sodium 138 mmol/L (137-145) 06/19/16 05:54 Potassium 4.9 mmol/L (3.6-5.0) 06/19/16 05:54 Chloride 100.7 mmol/L (98-107) 06/19/16 05:54 Carbon Dioxide 25 mmol/L (22-30) 06/19/16 05:54 Anion Gap 17 mmol/L 06/19/16 05:54 BUN 20 mg/dL (9-20) 06/19/16 05:54 Creatinine 1.1 mg/dL (0.8-1.5) 06/19/16 05:54 Estimated GFR > 60 ml/min 06/19/16 05:54 BUN/Creatinine Ratio 18.18 % 06/19/16 05:54 Glucose 107 mg/dL (75-100) H 06/19/16 05:54 Hemoglobin A1c 7.0 % (4-6) H 06/18/16 13:50 Calcium 8.7 mg/dL (8.4-10.2) 06/19/16 05:54 Total Bilirubin 0.5 mg/dL (0.1-1.2) 06/18/16 10:24 AST 12 units/L (5-40) 06/18/16 10:24 ALT 11 units/L (7-56) 06/18/16 10:24 Alkaline Phosphatase 52 units/L (35-129) 06/18/16 10:24 Total Creatine Kinase 63 units/L (55-170) 06/18/16 10:24 CK-MB (CK-2) < 1.0 ng/mL (0.0-4.0) 06/18/16 10:24 CK-MB (CK-2) Rel Index 1.5 (0-4) 06/18/16 10:24 Troponin T < 0.010 ng/mL (0.00-0.029) 06/18/16 22:40 Total Protein 7.7 g/dL (6.3-8.2) 06/18/16 10:24 Albumin 3.7 g/dL (3.9-5) L 06/18/16 10:24 Albumin/Globulin Ratio 0.9 % 06/18/16 10:24 Triglycerides 85 mg/dL (2-149) 06/18/16 13:50 Cholesterol 177 mg/dL (50-199) 06/18/16 13:50 LDL Cholesterol Direct 109 mg/dL (50-130) 06/18/16 13:50 HDL Cholesterol 51 mg/dL (40-59) 06/18/16 13:50 Cholesterol/HDL Ratio 3.47 % 06/18/16 13:50 Lipase 23 units/L (13-60) 06/18/16 10:24 TSH 1.920 mlU/mL (0.270-4.200) 06/18/16 13:50 Blood Type O POSITIVE 06/18/16 10:23 Antibody Screen Negative 06/18/16 10:23
[2016-06-22] MEDS: UNASYN/NS 3 GM/100 ML 100 ML IV SCH ×2 (00:14→06:44)
[2016-06-22] MEDS: LASIX IV SCH (06:43)
[2016-06-22 09:07] LABS: Anion Gap 19 mmol/L; Blood Urea Nitrogen 26 mg/dL (9-20); Calcium 8.7 mg/dL (8.4-10.2); Carbon Dioxide 26 mmol/L (22-30); Chloride 99.3 mmol/L (98-107); Glucose 115 mg/dL (75-100); Potassium 4.4 mmol/L (3.6-5.0); Sodium 140 mmol/L (137-145)
[2016-06-22] MEDS: ASPIRIN PO SCH (11:25)
[2016-06-22] MEDS: ALDACTONE PO SCH (11:26)
[2016-06-22] MEDS: PROTONIX PO SCH (11:26)
[2016-06-22] MEDS: ZESTRIL PO SCH ×2 (11:27→11:28)
[2016-06-22] MEDS: COREG PO SCH (11:28)
[2016-06-22 12:03] VITALS: BP 154/77
[2016-06-22] MEDS: PERCOCET 5/325 PO PRN (12:13)
--- NOTE | 2016-06-22 13:20 | Discharge Summary ---
Providers - Providers Date of Admission: 06/18/16 13:21 Date of discharge: 06/22/16 Attending physician: BERTRAM SORIA 06/18/16 14:53 Consult to Physician [CONS] Routine Consulting Provider: BARBARA DAVIS Reason For Exam: gluteal abscess Place consult to:: office Notified:: yes Phone number called:: [phone] Was contact made?: Yes If yes, spoke with:: Renuka Time called:: 06:21 Primary care physician: [employer] Hospitalization Condition: Stable Disposition: DISCHARGED TO HOME OR SELFCARE Time spent for discharge: 35 min Core Measure Documentation - Palliative Care Palliative Care/ Comfort Measures: Not Applicable - Core Measures Any of the following diagnoses?: heart failure - Heart Failure Discharge Requirements KIYA/ARB for LVSD if EF <40%: Yes Beta amandeep at discharge: Yes Exam - Constitutional Vitals: Temp Pulse Resp BP Pulse Ox 98.1 F 67 18 154/77 98 06/22/16 12:01 06/22/16 12:01 06/22/16 12:01 06/22/16 12:01 06/22/16 12:01 Plan Activity: advance as tolerated Diet: low cholesterol, low salt Wound: per your surgeon's advice [facility] [Outside] - 7 Days PRIMARY CAREMD [Primary Care Provider] - 3-5 Days BARBARA DAVIS MD [Staff Physician] - 7 Days SARAH SAVAGE MD [Staff Physician] - 7 Days Forms: Accompanied Note Prescriptions: Spironolactone [Aldactone] 25 mg PO QDAY #30 tablet Cefuroxime Axetil [Ceftin] 500 mg PO Q12H #14 tablet Docusate Sodium [Colace] 100 mg PO BID PRN #30 capsule PRN Reason: Constipation Carvedilol [Coreg] 25 mg PO BID #60 tablet Furosemide [Lasix TAB] 40 mg PO QDAY #60 tablet Polyethylene Glycol 3350 [Miralax 3350] 17 gm PO QDAY #30 packet oxyCODONE /ACETAMINOPHEN [Percocet 5/325 mg] 1 tab PO Q4H PRN #20 tablet PRN Reason: Pain, Moderate (4-6) Pantoprazole [Protonix TAB] 40 mg PO QDAY #30 tablet traMADol [Ultram 50 MG tab] 50 mg PO Q4H PRN #14 tablet PRN Reason: Pain, Moderate (4-6) Rivaroxaban [Xarelto] 20 mg PO QDAY #30 tablet Lisinopril [Zestril TAB] 20 mg PO BID #60 tablet
--- NOTE | 2016-06-22 13:49 | Progress Note ---
Assessment and Plan - Patient Problems (1) Nonischemic cardiomyopathy Current Visit: Yes Status: Acute Plan to address problem: Patient's wants a follow-up in our office for long-term management of his nonischemic cardiomyopathy. Subjective Date of service: 06/22/16 Interval history: Patient looks and feels well, anticipating his discharge today. There are no cardiac complaints. Objective Vital Signs Temp Pulse Pulse Pulse Pulse Pulse Resp 06/22/16 12:01 98.1 F 67 18 06/22/16 11:28 68 06/22/16 11:27 06/22/16 10:00 68 20 06/22/16 08:38 97.7 F 60 18 06/22/16 04:55 98.1 F 56 L 18 06/22/16 01:34 97.8 F 58 L 20 06/21/16 21:43 06/21/16 20:56 77 06/21/16 19:39 98.1 F 62 20 06/21/16 16:00 97.9 F 66 20 BP BP BP Pulse Ox 06/22/16 12:01 154/77 98 06/22/16 11:28 166/97 06/22/16 11:27 166/97 06/22/16 10:00 98 06/22/16 08:38 166/97 94 06/22/16 04:55 153/85 98 06/22/16 01:34 122/60 96 06/21/16 21:43 92 06/21/16 20:56 06/21/16 19:39 129/62 93 06/21/16 16:00 151/82 100 - Physical Examination General: No Apparent Distress HEENT: Positive: PERRL Neck: Positive: trachea midline Cardiac: Positive: Irregularly Regular Lungs: Positive: Decreased Breath Sounds Neuro: Positive: Grossly Intact Abdomen: Positive: Soft Skin: Positive: Clear Extremities: Absent: edema - Labs and Meds Comprehensive Metabolic Panel 06/22/16 Range/Units 08:18 Sodium 140 (137-145) mmol/L Potassium 4.4 (3.6-5.0) mmol/L Chloride 99.3 (98-107) mmol/L Carbon Dioxide 26 (22-30) mmol/L BUN 26 H (9-20) mg/dL Creatinine 1.3 (0.8-1.5) mg/dL Glucose 115 H (75-100) mg/dL Calcium 8.7 (8.4-10.2) mg/dL - Imaging and Cardiology EKG: image reviewed (sinus ; no acute ST segment changes; rate 65 )
[2016-06-22] MEDS ORDERED: MILK OF MAGNESIA PO ONE (14:13)
== END 2016-06-22 16:51 | disposition home or self-care (01) | DRG 292 ==
LOC: ED 09:52 → 4A 13:21
PROVIDERS: ADMIT Hospitalist; ATTEND Internal Medicine
PROC: 0D9Q3ZZ Drainage of Anus, Percutaneous Approach (ICD-10-PCS; principal; 2016-06-20)
DX: I11.0 Hypertensive heart disease with heart failure (principal); L02.31 Cutaneous abscess of buttock; I50.23 Acute on chronic systolic (congestive) heart failure; E11.9 Type 2 diabetes mellitus without complications; I48.91 Unspecified atrial fibrillation; F17.200 Nicotine dependence, unspecified, uncomplicated; I42.9 Cardiomyopathy, unspecified; Z88.6 Allergy status to analgesic agent; Z95.810 Presence of automatic (implantable) cardiac defibrillator; Z83.3 Family history of diabetes mellitus; Z82.3 Family history of stroke; Z82.49 Family history of ischemic heart disease and other diseases of the circulatory system; Z86.718 Personal history of other venous thrombosis and embolism; Z86.711 Personal history of pulmonary embolism; Z79.01 Long term (current) use of anticoagulants
CPT/HCPCS: 36415; 71010; 80048; 80053; 80061; 82550; 82553; 82962; 83036; 83690; 84443; 84484; 85025; 85610; 85730; 86850; 86900; 86901; 87040; 87075; 87076; 87116; 87186; 90686; 90732; 93005; 93010; 93306; 94760; 96374; 99406; J0295; J1170; J1644; J1940; J2250; J2370; J2405; J2704; J7030

== ENCOUNTER 2017-10-24 11:53 | Outpatient (CLI) | payer OTHER | END 2017-10-24 11:54 | disposition home or self-care (01) | LOC: LAB 11:53 | PROVIDERS: ATTEND Internal Medicine | DX: E11.9 Type 2 diabetes mellitus without complications (principal); I11.0 Hypertensive heart disease with heart failure; I50.9 Heart failure, unspecified; G47.30 Sleep apnea, unspecified | CPT/HCPCS: 36415; 83036 ==

== ENCOUNTER 2018-09-03 09:43 | Outpatient (CLI) | payer BC, MEDICARE ==
[2018-09-03 11:45] LABS: Calcium 8.5 mg/dL (8.4-10.2)
[2018-09-03 11:56] LABS: Chol/HDL Ratio 3.67 %
== END 2018-09-03 09:44 | disposition home or self-care (01) ==
LOC: LAB 09:43
PROVIDERS: ATTEND Internal Medicine
DX: E11.9 Type 2 diabetes mellitus without complications (principal); E78.5 Hyperlipidemia, unspecified; I11.0 Hypertensive heart disease with heart failure; I50.9 Heart failure, unspecified; E66.01 Morbid (severe) obesity due to excess calories; Z87.891 Personal history of nicotine dependence
CPT/HCPCS: 36415; 80048; 80061; 83036

== ENCOUNTER 2019-02-02 10:06 | Outpatient (CLI) | payer MEDICARE ==
[2019-02-02 11:03] LABS: BUN/Creatinine Ratio 16; Blood Urea Nitrogen 21 mg/dL (9-20); Calcium 9.3 mg/dL (8.4-10.2); Chol/HDL Ratio 3.64 %; HDL Cholesterol 37 mg/dL (40-59); Hemolysis Index 9; LDL Cholesterol,Direct 95 mg/dL (50-130)
== END 2019-02-02 10:07 | disposition home or self-care (01) ==
LOC: LAB 10:06
PROVIDERS: ATTEND Internal Medicine
DX: Z12.5 Encounter for screening for malignant neoplasm of prostate (principal); E11.65 Type 2 diabetes mellitus with hyperglycemia; E78.5 Hyperlipidemia, unspecified; I11.0 Hypertensive heart disease with heart failure; I50.9 Heart failure, unspecified; I48.91 Unspecified atrial fibrillation; Z95.0 Presence of cardiac pacemaker; Z86.718 Personal history of other venous thrombosis and embolism
CPT/HCPCS: 36415; 80048; 80061; 83036; 84153